=== PATIENT | female | born 1980 | race Caucasian/White ===

== ENCOUNTER 2020-01-13 12:43 | Emergency (ER) | payer SELFPAY ==
--- NOTE | ~2020-01-13 | XR_ITS ---
EXAMINATION: XR ankle LT min 3V EXAM DATE: 01/13/2020 13:13 INDICATION: Old injury. Possible osteomyelitis. TECHNIQUE: Left ankle frontal, lateral and oblique projections obtained and reviewed. Comparison is m kitty to prior examination from 12/24/2018. FINDINGS: There is an old left fibular fracture or osteotomy with nonunion again noted. There is a f ibular plate with bony proliferation surrounding the distal half of it. Again there are screws presen t in the proximal 4 having normal appearance, with a normal appearance to the distal 3 screws. The di stal most screw is fractured. 2 screws bridging the syndesmosis just proximal to this have large amou nt of lucency surrounding them which appears unchanged compared to prior study, and both have demonst rated retraction. Again there is soft tissue swelling. Mild widening of the ankle mortise medially. 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 Evidence of old medial malleolar avulsion injuri es. Accounting for differences in technique, there is no significant interval change. IMPRESSION: Fibular hardware with lucency surrounding the 2 screws bridging distal tibiofibular synd esmosis and some retraction of these. Chronic appearance, more likely loosening than osteomyelitis. M ild mortise widening. Reviewed, dictated and finalized at location A. IMPRESSION: Fibular hardware with lucency surrounding the 2 screws bridging di stal tibiofibular syndesmosis and some retraction of these. Chronic appearance, more likely loosening than osteomyelitis. Mild mortise widening.
[2020-01-13 12:50] VITALS: BP 120/68; PULSE 94; RESP 22; TEMP 37.1; O2SAT 97
--- NOTE | 2020-01-13 13:02 | ED.LOWEXIN ---
HPI - Extremity Injury (Lower) General Chief Complaint: Extremity Injury, Lower Stated Complaint: injured left leg Time Seen by Provider: 01/13/20 13:02 History of Present Illness HPI Narrative: 39-year-old female patient is here with chief complaints of pain in the left ankle for over a week. The patient states that she had broken her left ankle about 6 years ago and has had couple of surgeries with internal fixation. She states that she has some bone deficiency and states that the metal peterson is shifting backwards. The patient's last surgery was about 3 years ago. She denies any recent injury. She has not followed up with Orthopedics at [place] to the because patient states that they will not see her for follow-up. The patient also states that her leg usually remains swollen and about a week ago she was seen at [facility] where she was told that she might have infection off the metal wear in the ankle. She was given an antibiotic in the ER and some pain medication but she states that she was not discharged home with any antibiotics. She has not followed up with any physician either primary care or Orthopedics since then. The patient states that the pain is constant and seems to be more on the medial side. And she also complains of itching in the back of the leg although she is not reporting any rash. The patient states that she has not had any difficulty in ambulation in spite of the fact that she has had a broken ankle in the past and surgical intervention and that the leg remains swollen constantly. Patient denies any pain or injury in any of the joint in the lower extremities either right or left side or any low back pain. Related Data Home Medications Medication Instructions Recorded Confirmed No Home Medications 01/13/20 01/13/20 Allergies Allergy/AdvReac Type Severity Reaction Status Date / Time Penicillins Allergy Itching Verified 01/13/20 13:00 Review of Systems Review of Systems: All systems reviewed & are unremarkable except as noted in HPI and below PMFSH Past Medical History Medical History (Updated 01/13/20 @ 14:17 by Maddie Barnes MD) Aftercare following left ankle joint replacement surgery No pertinent past medical history Exam Narrative: Exam Narrative: Patient is awake and alert and is in no acute distress. She is anxious however and hyperventilating. Her vital signs are stable. Patient has no respiratory distress. Her left lower leg is noted to be is symmetrically swollen. There is no redness deformity or any the rash noted to the ankle area or to the calf. There is some tenderness of the ankle joint diffusely and the ROM is restricted. The distal neurovascular status is intact. Const: General: healthy appearing, no acute distress and alert Other: Eyes: Pupils: Equal, round and reactive pupils present Resp: Effort & Inspection: normal respiratory effort Auscultation: clear to auscultation bilaterally Skin: General skin exam: normal color Rashes: no rashes Neuro: General: patient oriented x3 and CN's II-XI intact bilaterally Speech: normal speech Extrem: Other: left ankle is diffusely swollen and there is a scar noted on the lateral aspect. There is no redness or any open wounds. There is no rash or erythema. The ROM at the left ankle is limited. Patient does have mild tenderness on deep palpation. Neurovascular status is intact. Psych: Mental Status: mental status grossly normal Affect: normal affect Course Course Emergency Course: The patient is aware of her radiology report on the x-ray of the ankle. She is not on any pain medication however she states that she has taken gabapentin in the past. She also states that she was given hydrocodone and tramadol. She is aware that the of she has chronic pain and I have advised her to take Tylenol and ibuprofen. No prescriptions are being given to her at this time from this ER. She will be given follow-up with her pr
[2020-01-13 14:30] VITALS: BP 113/64
== END 2020-01-13 14:30 | disposition home or self-care (01) ==
PROVIDERS: Emergency Provider Emergency Medicine
DX: M25.572 Pain in left ankle and joints of left foot (principal)
CPT/HCPCS: 73610; 99282; 99283

== ENCOUNTER 2020-05-03 19:43 | Emergency (ER) | payer SELFPAY ==
--- NOTE | ~2020-05-03 | XR_ITS ---
EXAMINATION: XR ankle LT min 3V DATE: 05/03/2020 22:02 INDICATION: Left ankle swelling TECHNIQUE: Anteroposterior, oblique, mortise, and lateral views of the left ankle were obtained. COMPARISON: 01/13/2020 and 12/24/2018 FINDINGS: Again seen is a failed internal fixation of a distal left fibular fracture. The chronically nonunited fracture extends transversely across the fibular a possibly 4.7 cm above the level of the tibiotalar joint line. Distalmost screw is fractured. No change in a 1-2 mm thick rim of lucency surrounding th e 2 next most distal screws which span the syndesmosis into the distal medial metaphysis as well as s urrounding the distal aspect of the plate at the distal fragment. The more proximal of the syndesmoti c screws remains partially backed out with an unchanged bulge in the skin contour overlying the head of the screw. There is no lucency surrounding either the fractured fragment in the distal fibula or a long the plate and screws at the fibular diaphysis proximal to the fracture. Both the lack of signifi cant progression of osteolysis and distribution of lucency restricted to locations of expected loosen ing would argue against osteomyelitis. Also argue against osteomyelitis and associated septic arthrit is is a minimal progression of now mild to moderate joint space narrowing at the ankle. Chronic heter otopic ossification between the talus and the tip the medial malleolus along with unchanged mild wide dale of the medial clear space consistent with chronic deltoid ligament tear. No acute fracture. The visualized joint spaces in the left mid and hindfoot remain relatively preserved. Small plantar calca dina spur. Small ankle joint effusion. Soft tissue swelling with subcutaneous edema about the left an kle and visualized lower calf. IMPRESSION: 1. 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 No findings to suggest osteomyelitis or other acute osseous abnormality. 2. 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 Reviewed, dictated and finalized at location H. TECH IMPRESSION: 1. 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 No findings to suggest osteomyeli tis or other acute osseous abnormality. 2. Chronic deltoid ligament tear with unchanged mild widening of the medial mane ar space and slight progression in mild to moderate secondary tibiotalar osteoa rthritis.
--- NOTE | ~2020-05-03 | CT_ITS ---
EXAMINATION: CTA chest PE protocol DATE: 05/03/2020 21:31 INDICATION: Shortness of breath, chest tightness and elevated d-dimer. TECHNIQUE: Computed tomography (CT) pulmonary angiogram of the chest was performed with 100 mL Omnipa que-350 intravenous contrast. Additional 3D reconstructions utilizing coronal maximum intensity proje ction (MIP) were performed. Automated exposure control and iterative reconstruction technique were em ployed. The dose-length product was 794.22 mGy-cm. COMPARISON: None FINDINGS: Good contrast opacification of the pulmonary arteries. There is mild to moderate streak artifact from dense contrast in the superior vena cava and right atrium. Mild scattered respiratory motion artifac t. Overall this mildly decreases sensitivity and specificity for pulmonary embolism. No definitive pu lmonary embolism identified. There is mild mosaic attenuation in the lungs with dependent lower lung predominance consistent with expiratory phase of imaging with scattered mild air trapping related to small airway disease. More prominent air trapping is seen a small subsegmental region of the left low er lobe associated with a large calcified granuloma. No pneumonia, pulmonary edema, pleural effusion or pneumothorax. Heart size is normal. No pericardial effusion. Thoracic aorta is normal caliber with no dissection. Calcified left hilar lymph nodes consistent with old granulomatous disease. No pathol ogically enlarged thoracic lymphadenopathy. Cholecystectomy clips at the gallbladder fossa. Bones are unremarkable. IMPRESSION: 1. No pulmonary embolism. Sensitivity and specificity mildly decreased by combination of some streak artifact and mild respiratory motion. 2. Small region of scattered air trapping consistent with small airway disease. Reviewed, dictated and finalized at [facility]. ER OPERATOR IMPRESSION: 1. No pulmonary embolism. Sensitivity and specificity mildly decreased by combi nation of some streak artifact and mild respiratory motion. 2. Small region of scattered air trapping consistent with small airway disease.
[2020-05-03 19:59] VITALS: BP 140/68; PULSE 98; RESP 22; TEMP 36.9; O2SAT 99
--- NOTE | 2020-05-03 20:14 | ECG_ITS ---
Measurements Intervals [place] Rate: 82 P: 56 CO: 170 QRS: 21 QRSD: 91 T: 48 QT: 370 QTc: 434 Interpretive Statements SINUS RHYTHM WITH SINUS ARRHYTHMIA BASELINE ARTIFACT- II, III, AVR, AVL, AVF NORMAL ECG Electronically Signed On 05-04-2020 9:00:59 NEWS OPERATIONS MANAGER by Samuel Mckinnon D.O.
[2020-05-03] MEDS: KETOROLAC (*BKC) 60 MG/2 ML VIAL IM (20:30)
[2020-05-03] MEDS: BACLOFEN 10 MG TABLET 20 MG PO (20:39)
[2020-05-03 20:40] LABS: Basophils Absolute Auto 0.05 K/mm3 (0.00-0.10); Basophils Percent Auto 0.6 % (0.0-1.0); Eosinophils Absolute Auto 0.11 K/mm3 (0.02-0.50); Eosinophils Percent Auto 1.4 % (1.0-6.0); Hematocrit 38.2 % (35.0-49.0); Hemoglobin 12.2 g/dL (12.0-15.0); Immature Granulocyte Absolute 0.02 K/mm3 (0.00-0.00); Immature Granulocyte Percent A 0.3 % (0.0-0.0); Lymphocytes Absolute Auto 2.67 K/mm3 (1.10-4.50); Lymphocytes Percent Auto 34.4 % (18.0-42.0); Mean Corpuscular HGB Conc 31.9 g/dL (32.0-36.0); Mean Corpuscular Hemoglobin 29.4 pg (27.0-31.0); Mean Platelet Volume 10.3 fl (9.2-11.8); Monocytes Absolute Auto 0.42 K/mm3 (0.10-0.90); Monocytes Percent Auto 5.4 % (2.0-11.0); Neutrophils Absolute Auto 4.5 K/mm3 (1.7-7.2); Neutrophils Percent Auto 57.9 % (50.0-70.0); Platelet Count Result 203 K/mm3 (150-420); Red Blood Count 4.15 M/mm3 (4.20-5.40); Red Cell Distribution Width 14.2 % (11.6-14.4); White Blood Count 7.8 K/mm3 (4.8-10.8)
[2020-05-03 20:55] LABS: BNP 45.3 pg/mL (0-100)
[2020-05-03 20:56] LABS: Alanine Aminotransferase 21 U/L (14-59); Albumin Level 3.4 g/dL (3.4-5.0); Alkaline Phosphatase 78 U/L (46-116); Anion Gap 6 mmol/L (8-16); Aspartate Amino Transferase 13 U/L (15-37); Bilirubin,Total 0.1 mg/dL (0.00-1.00); Blood Urea Nitrogen 12 mg/dL (7-18); Calcium 8.5 mg/dL (8.5-10.1); Carbon Dioxide 29 mmol/L (21-32); Chloride 103 mmol/L (98-108); D Dimer 1.01 mg/L (0.19-0.50); Estimated CRCL calculation 98 ml/min; Estimated Glomerular Filt Rate > 60; Glucose 119 mg/dL (70-99); Osmolality Calculated 286 mOsm/kg (285-295); Potassium 3.3 mmol/L (3.5-5.1); Sodium 138 mmol/L (136-145); Total Protein 6.9 g/dL (6.4-8.2)
[2020-05-03 20:58] LABS: SARS-CoV-2 Ag Negative (Negative)
[2020-05-03 20:59] LABS: Troponin I < 0.02 ng/mL (0.00-0.056)
--- NOTE | 2020-05-03 21:49 | ED.LOWEXIN ---
HPI - Extremity Injury (Lower) General Chief Complaint: Extremity Injury, Lower Stated Complaint: chest and stomach pain, Time Seen by Provider: 05/03/20 20:05 Source: patient Mode of arrival: ambulatory Limitations: other (limitation secondary to anxiety ) History of Present Illness HPI Narrative: Patient comes in anxiety with chest tightness, new of relatively new onset. Also she complains of dull discomfort ongoing, for months, mild to moderately severe in left ankle. Discomfort in ankle has not been relieved by ibuprofen at home. Because of ongoing discomfort she comes in MD complaint: other (no recent injury) Exacerbating factors: weight bearing Related Data Home Medications Medication Instructions Recorded Confirmed No Home Medications 01/13/20 05/03/20 Allergies Allergy/AdvReac Type Severity Reaction Status Date / Time Penicillins Allergy Itching Verified 01/13/20 13:00 Review of Systems Constitutional: Constitutional: Reports no additional constitutional complaints Eyes: Eyes: Reports no additional eye complaints Cardiovascular: Cardiovascular: Reports no additional cardiovascular complaints Respiratory: Respiratory: Reports no additional respiratory complaints Gastrointestinal: Gastrointestinal: Reports no additional gastrointestinal complaints Genitourinary: Genitourinary: Reports no additional female genitourinary complaints Musculoskeletal: Musculoskeletal: Reports no additional musculoskeletal complaints Comments: Pain in Integumentary/Breasts: Skin/Breast: Reports system reviewed and no additional complaints, except as docu Neurologic: Reports system reviewed and no additional complaints, except as documented Psychiatric: Psychiatric: Reports no additional psychiatric complaints Endocrine: Endocrine: Reports no additional endocrine complaints Hematologic/Lymphatic: Hematologic/Lymphatic: Reports no additional hematologic/lymphatic complaints Allergic/Immunologic: Allergic/Immunologic: Reports no additional allergic/immunologic complaints [facility] Past Medical History Medical History Aftercare following left ankle joint replacement surgery Anxiety disorder No pertinent past medical history Surgical History Surgical History Status post ORIF of fracture of ankle Social History Social History Smoking packs per day: 1 Smoking cigarettes per day: 20.0 Smoking status: Current every day smoker Exam Narrative: Exam Narrative: Patient appears acutely anxious, and complaining of pain in left ankle. Anxiety appears to be the main issue here. Const: Orientation/consciousness: patient oriented x3 Other: acute anxiety HENMT: Head: normal to inspection Ears: TM's normal bilaterally and TM abnormal General nose exam: Normal external nose present and Normal nares present Face and sinus: normal facial exam Throat: posterior oropharynx normal and uvula midline Eyes: General: appearance normal, both eyes and all related structures Conjunctivae: conjunctivae normal Pupils: Equal, round and reactive pupils present Neck: Neck: normal visual inspection and no lymphadenopathy Chest: Chest palpation & inspection: normal inspection of the chest Resp: Effort & Inspection: normal respiratory effort Auscultation: clear to auscultation bilaterally Cardio: Rate: regular rate Rhythm: regular rhythm GI: GI Palp: Yes Soft to palpation Other: nontender : General: Yes no CVA tenderness Skin: General skin exam: normal color Rashes: no rashes Neuro: General: patient oriented x3 and moves all extremities Other: Speech reveals acute anxitey Extrem: General: normal to inspection Psych: Appearance: grossly normal Mental Status: mental status grossly normal Thought content: Yes Normal thought content present Course Course Sondra
[2020-05-03 23:36] VITALS: BP 119/76; PULSE 90; RESP 20; TEMP 37.1; O2SAT 98
== END 2020-05-03 23:36 | disposition home or self-care (01) ==
PROVIDERS: Emergency Provider Emergency Medicine
DX: M25.572 Pain in left ankle and joints of left foot (principal)
CPT/HCPCS: 36415; 71275; 73610; 80053; 83880; 84484; 85025; 85380; 87426; 93005; 96372; 99283; 99284; A9270; J1885; Q9965

== ENCOUNTER 2020-12-10 18:55 | Emergency (ER) | payer SELFPAY ==
--- NOTE | ~2020-12-10 | XR_ITS ---
EXAMINATION: XR forearm RT 2V DATE: 12/10/2020 19:56 INDICATION: Right forearm injury. TECHNIQUE: 2 views of right forearm were obtained. COMPARISON: None. FINDINGS: Bone alignment is normal. No fracture. Joint spaces are well maintained. There is no elbow joint effusion. IMPRESSION: 1. Normal right forearm. Reviewed, dictated and finalized at location A. IMPRESSION: 1. Normal right forearm.
--- NOTE | ~2020-12-10 | XR_ITS ---
EXAMINATION: XR elbow RT min 3V DATE: 12/10/2020 19:56 INDICATION: Right elbow injury. TECHNIQUE: 4 views of right elbow were obtained. COMPARISON: None. FINDINGS: Bone alignment is normal. No fracture. Incidental note is made of a supracondylar process. Joint spaces are well maintained. There is no elbow joint effusion. IMPRESSION: 1. Normal right elbow. Reviewed, dictated and finalized at location A. IMPRESSION: 1. Normal right elbow.
--- NOTE | ~2020-12-10 | CT_ITS ---
EXAMINATION: CT brain wo con DATE: 12/10/2020 19:56 INDICATION: Head injury. TECHNIQUE: Computed tomography (CT) of the head was performed without intravenous contrast. The mA wa s adjusted according to patient size. Iterative reconstruction technique was employed. The dose-lengt h product was 605.33 mGy-cm. COMPARISON: None FINDINGS: There is no intracranial hemorrhage, acute infarction, or abnormal intracranial mass lesion . The ventricles are normal in size. The paranasal sinuses are clear. The mastoid air cells are olu l. The orbits are normal. IMPRESSION: 1. Normal brain. Reviewed, dictated and finalized at location A. IMPRESSION: 1. Normal brain.
[2020-12-10 19:05] VITALS: BP 130/98; PULSE 88; RESP 20; TEMP 36.8; O2SAT 99
--- NOTE | 2020-12-10 19:09 | ED.LOWEXIN ---
HPI - Extremity Injury (Lower) General Chief Complaint: Fall Stated Complaint: fell multiple times Time Seen by Provider: 12/10/20 19:15 Source: patient Mode of arrival: ambulatory Limitations: no limitations History of Present Illness HPI Narrative: Patient comes in after falls and complaints of headache and mental status change. Falls happened yesterday and last am. Headache has been mild but associated with presyncope. Right elbow pain has been moderately severe, ongoing, with greatly increased pain with pronation and supination of the elbow. Pain has been ongoing since last 1:30am today, made worse with movement. Pain lessened with ice and rest. Onset (ago): hour(s) Type of Injury: blunt Place: home Severity: moderate Relieving factors: rest Exacerbating factors: movement Context: direct blow Associated symptoms: swelling Treatments prior to arrival: cold therapy and NSAIDS Related Data Allergies Allergy/AdvReac Type Severity Reaction Status Date / Time Penicillins Allergy Itching Verified 01/13/20 13:00 Review of Systems Constitutional: Constitutional: Reports no additional constitutional complaints Eyes: Eyes: Reports no additional eye complaints ENT: Reports system reviewed and no additional complaints, except as documented Cardiovascular: Cardiovascular: Reports no additional cardiovascular complaints Respiratory: Respiratory: Reports no additional respiratory complaints Gastrointestinal: Gastrointestinal: Reports no additional gastrointestinal complaints Genitourinary: Genitourinary: Reports no additional female genitourinary complaints Musculoskeletal: Musculoskeletal: Reports no additional musculoskeletal complaints Integumentary/Breasts: Skin/Breast: Reports system reviewed and no additional complaints, except as docu Neurologic: Reports system reviewed and no additional complaints, except as documented Psychiatric: Psychiatric: Reports no additional psychiatric complaints Endocrine: Endocrine: Reports no additional endocrine complaints Hematologic/Lymphatic: Hematologic/Lymphatic: Reports no additional hematologic/lymphatic complaints Allergic/Immunologic: Allergic/Immunologic: Reports no additional allergic/immunologic complaints [facility] Past Medical History Medical History Aftercare following left ankle joint replacement surgery Anxiety disorder No pertinent past medical history Surgical History Surgical History Status post ORIF of fracture of ankle Family History Family History (Updated 12/10/20 @ 20:17 by Derek Perez MD) Mother Lung cancer Thyroid cancer Social History Social History Smoking packs per day: 1 Smoking cigarettes per day: 20.0 Smoking status: Current every day smoker Exam Const: General: no acute distress and alert Orientation/consciousness: patient oriented x3 HENMT: Head: normal to inspection Ears: external ears normal and TM's normal bilaterally General nose exam: Normal external nose present Face and sinus: normal facial exam Mouth: Yes Normal oral and palatal mucosa present Throat: posterior oropharynx normal Eyes: Conjunctivae: conjunctivae normal Neck: Neck: normal visual inspection and no lymphadenopathy Chest: Chest palpation & inspection: normal inspection of the chest Resp: Effort & Inspection: normal respiratory effort Auscultation: clear to auscultation bilaterally Cardio: Rate: regular rate Rhythm: regular rhythm GI: GI Palp: Yes Soft to palpation (nontender) Back/Spine/Pelvis: Back: no CVA tenderness Skin: General skin exam: normal color Neuro: General: patient oriented x3 and moves all extremities Extrem: General: normal to inspection Psych: Appearance: grossly normal Mental Status: mental status grossly normal Thought content: Yes Normal thought content p
[2020-12-10] MEDS: KETOROLAC (*BKC) 60 MG/2 ML VIAL IM (19:55)
[2020-12-10 20:14] VITALS: BP 146/97; PULSE 84; RESP 20; TEMP 36.8; O2SAT 97
--- NOTE | 2020-12-10 20:25 | PC.NURSE ---
patient assisted to personal vehicle per this RN per wheelchair.
== END 2020-12-10 20:26 | disposition home or self-care (01) ==
PROVIDERS: Emergency Provider Emergency Medicine
DX: S50.01XA Contusion of right elbow, initial encounter (principal); W19.XXXA Unspecified fall, initial encounter
CPT/HCPCS: 70450; 73080; 73090; 96372; 99283; 99284; A4565; J1885

== ENCOUNTER 2021-11-23 19:59 | Emergency (ER) | payer OTHER, SELFPAY ==
--- NOTE | ~2021-11-23 | XR_ITS ---
XR chest 1V portable DATE: 11/23/2021 20:58 INDICATION: Shortness of breath, central chest tightness TECHNIQUE: Portable upright AP chest on 12/03/2021 at 2100 hours COMPARISON: 05/03/2020 CT pulmonary scan FINDINGS: Normal heart size. No hilar or mediastinal enlargement. No pulmonary infiltrate or consolid ation, pleural effusion or pulmonary vascular congestion or pneumothorax. There is minimal levoscoliosis of the thoracic spine. IMPRESSION: No active cardiopulmonary disease Reviewed, dictated and finalized at location A.
[2021-11-23 20:00] VITALS: BP 138/77; PULSE 96; RESP 20; TEMP 37.2; O2SAT 96
--- NOTE | 2021-11-23 20:06 | ED.URI ---
HPI - URI/Sore Throat General Chief Complaint: Shortness of Breath/Dyspnea Stated Complaint: possible bronchitis Time Seen by Provider: 11/23/21 20:06 Source: patient Mode of arrival: ambulatory History of Present Illness HPI Narrative: 41-year-old female, smoker with obesity presents to the ER 2 day history of -- cough with mucoid sputum -- worsening shortness of breath no fever or chest pain has nausea without any vomiting or diarrhea MD elicited complaint: cough Onset (ago): day(s) ( started 2 days ago) Severity: moderate Description of mucous: clear Able to tolerate fluids by mouth: Yes Exacerbating factors: nothing Relieving factors: nothing Context: sick contacts ( her granddaughter tested positive for COVID 5 days ago) Associated symptoms: denies other symptoms, cough, shortness of breath and nausea Treatments prior to arrival: none Related Data Home Medications Medication Instructions Recorded Confirmed gabapentin 100 mg capsule 1 cap PO TID 11/23/21 11/23/21 Allergies Allergy/AdvReac Type Severity Reaction Status Date / Time Penicillins Allergy Itching Verified 01/13/20 13:00 Review of Systems Review of Systems: All systems reviewed & are unremarkable except as noted in HPI and below Constitutional: Constitutional: Reports as per HPI and Reports no additional constitutional complaints Eyes: Eyes: Reports as per HPI and Reports no additional eye complaints ENT: Reports system reviewed and no additional complaints, except as documented and Reports as per HPI Cardiovascular: Cardiovascular: Reports as per HPI and Reports no additional cardiovascular complaints Respiratory: Respiratory: Reports as per HPI, Reports no additional respiratory complaints, Reports chest congestion, Reports cough, Reports excessive phlegm production and Reports dyspnea Gastrointestinal: Gastrointestinal: Reports as per HPI and Reports no additional gastrointestinal complaints Genitourinary: Genitourinary: Reports no additional female genitourinary complaints and Reports as per HPI Musculoskeletal: Musculoskeletal: Reports no additional musculoskeletal complaints and Reports as per HPI Integumentary/Breasts: Skin/Breast: Reports system reviewed and no additional complaints, except as docu and Reports as per HPI Neurologic: Reports system reviewed and no additional complaints, except as documented and Reports as per HPI Psychiatric: Psychiatric: Reports no additional psychiatric complaints and Reports as per HPI Endocrine: Endocrine: Reports no additional endocrine complaints and Reports as per HPI Hematologic/Lymphatic: Hematologic/Lymphatic: Reports no additional hematologic/lymphatic complaints and Reports as per HPI Allergic/Immunologic: Allergic/Immunologic: Reports no additional allergic/immunologic complaints and Reports as per HPI [facility] Past Medical History Medical History Aftercare following left ankle joint replacement surgery Anxiety disorder No pertinent past medical history Surgical History Surgical History Status post ORIF of fracture of ankle Family History Family History Mother Lung cancer Thyroid cancer Social History Social History Smoking packs per day: 1 Smoking cigarettes per day: 20.0 Smoking status: Current every day smoker Exam Const: General: well developed and anxious Nutritional Appearance: obese Orientation/consciousness: oriented to person, oriented to place and oriented to time Limitations: no limitations HENMT: Head: normal to inspection Ears: hearing grossly normal bilaterally General nose exam: Normal external nose present Face and sinus: normal facial exam Mouth: Yes Normal oral and palatal mucosa present Throat: posterior oropharynx normal
--- NOTE | 2021-11-23 20:17 | ECG_ITS ---
Measurements Intervals [place] Rate: 92 P: 54 NH: 172 QRS: -3 QRSD: 89 T: 63 QT: 364 QTc: 452 Interpretive Statements SINUS RHYTHM POSSIBLE LEFT ATRIAL ENLARGEMENT [-0.1mV P-WAVE IN V1/V2] LOW QRS VOLTAGE IN PRECORDIAL LEADS [QRS DEFLECTION < 1.0 mV IN CHEST LEADS] COMPARED TO ECG 05/03/2020 20:25:04 NO SIGNIFICANT CHANGE Electronically Signed On 11-24-2021 14:22:15 CDT by Sylvain Quiroz M.D.
[2021-11-23 20:23] VITALS: O2SAT 96
[2021-11-23 20:30] VITALS: PULSE 95; RESP 18; O2SAT 96
[2021-11-23] MEDS: IPRATROPIUM 0.5 MG/ALBUTEROL SULFATE 2.5 MG AMPUL.NEB 3 ML INHALATION (20:30)
[2021-11-23 20:31] LABS: Basophils Absolute Auto 0.05 K/mm3 (0.00-0.10); Basophils Percent Auto 1.1 % (0.0-1.0); Eosinophils Absolute Auto 0.18 K/mm3 (0.02-0.50); Eosinophils Percent Auto 3.9 % (1.0-6.0); Hemoglobin 12.4 g/dL (12.0-15.0); Immature Granulocyte Absolute 0.01 K/mm3 (0.00-0.00); Immature Granulocyte Percent A 0.2 % (0.0-0.0); Lymphocytes Absolute Auto 1.66 K/mm3 (1.10-4.50); Lymphocytes Percent Auto 36.2 % (18.0-42.0); Mean Corpuscular HGB Conc 31.8 g/dL (32.0-36.0); Mean Corpuscular Hemoglobin 28.4 pg (27.0-31.0); Mean Corpuscular Volume 89.4 fL (78.0-102.0); Mean Platelet Volume 10.2 fl (9.2-11.8); Monocytes Absolute Auto 0.37 K/mm3 (0.10-0.90); Monocytes Percent Auto 8.1 % (2.0-11.0); Neutrophils Absolute Auto 2.3 K/mm3 (1.7-7.2); Neutrophils Percent Auto 50.5 % (50.0-70.0); Platelet Count Result 199 K/mm3 (150-420); Red Blood Count 4.36 M/mm3 (4.20-5.40); Red Cell Distribution Width 15.2 % (11.6-14.4); White Blood Count 4.6 K/mm3 (4.8-10.8)
[2021-11-23 20:44] VITALS: PULSE 95; RESP 18; O2SAT 97
[2021-11-23 20:54] LABS: Alanine Aminotransferase 17 U/L (14-59); Albumin Level 3.2 g/dL (3.4-5.0); Alkaline Phosphatase 87 U/L (46-116); Anion Gap 8 mmol/L (8-16); Aspartate Amino Transferase 17 U/L (15-37); Bilirubin,Total 0.2 mg/dL (0.00-1.00); Blood Urea Nitrogen 6 mg/dL (7-18); Calcium 8.4 mg/dL (8.5-10.1); Carbon Dioxide 31 mmol/L (21-32); Chloride 102 mmol/L (98-108); Estimated CRCL calculation 105 ml/min; Estimated Glomerular Filt Rate > 60; Glucose 206 mg/dL (70-99); NT Pro B Type Natriuretic Pept 39 pg/mL (0-125); Osmolality Calculated 295 mOsm/kg (285-295); Potassium 3.6 mmol/L (3.5-5.1); Sodium 141 mmol/L (136-145); Total Protein 6.8 g/dL (6.4-8.2); Troponin I 7.9 ng/L (0.00-60.4)
[2021-11-23 21:08] LABS: Influenza A QL RT-PCR Negative (Negative); Influenza B QL RT-PCR Negative (Negative); SARS-CoV-2 RNA PCR Negative (Negative)
[2021-11-23] MEDS: AZITHROMYCIN 250 MG TABLET 500 MG PO (21:20)
[2021-11-23] MEDS: methylPREDNISolone SOD SUCC 125 MG VIAL 40 MG IM (21:21)
[2021-11-23] MEDS: ALBUTEROL SULFATE (*SP) INHALER 2 PUFF INHALATION (21:27)
[2021-11-23 21:28] VITALS: BP 128/79; PULSE 87; RESP 20; TEMP 37.2; O2SAT 99
== END 2021-11-23 21:36 | disposition home or self-care (01) ==
PROVIDERS: Emergency Provider Internal Medicine Critical Care Medicine
DX: J20.9 Acute bronchitis, unspecified (principal); R73.9 Hyperglycemia, unspecified; Z20.822 Contact with and (suspected) exposure to COVID-19
CPT/HCPCS: 36415; 71045; 80053; 83605; 83880; 84484; 85025; 87502; 93005; 94640; 96372; 99284; A9270; C9803; J2930; U0003; U0005

== ENCOUNTER 2022-07-18 18:20 | Emergency (ER) | payer OTHER, SELFPAY ==
[2022-07-18 18:20] VITALS: BP 110/67; PULSE 96; RESP 20; TEMP 36.2; O2SAT 100
--- NOTE | 2022-07-18 18:35 | ED.GENADULT ---
HPI - General Adult General Chief complaint: Skin/Abscess/Foreign Body Stated complaint: boils on both sides and right leg infected Time Seen by Provider: 07/18/22 18:35 Source: patient Mode of arrival: ambulatory Limitations: no limitations History of Present Illness HPI narrative: Patient complains of a boil right side of her chest. It has been draining she pushed on it been there for couple weeks. She also complains of small in her left axilla. And she complains of scab on her right thigh. Denies any fever cough runny nose sore throat nausea vomiting diarrhea constipation, problems walking talking seeing or hearing. She has had these boils before back in April. Related Data Allergies Allergy/AdvReac Type Severity Reaction Status Date / Time codeine Allergy Rash Verified 07/18/22 18:33 Penicillins Allergy Itching Verified 07/18/22 18:33 Review of Systems Constitutional: Constitutional: Reports as per HPI and Reports no additional constitutional complaints Eyes: Eyes: Reports no additional eye complaints ENT: Reports system reviewed and no additional complaints, except as documented, Denies dizziness and Denies sore throat Cardiovascular: Cardiovascular: Reports no additional cardiovascular complaints and Denies chest pain Respiratory: Respiratory: Reports as per HPI and Reports no additional respiratory complaints Gastrointestinal: Gastrointestinal: Reports no additional gastrointestinal complaints Genitourinary: Genitourinary: Reports no additional female genitourinary complaints Musculoskeletal: Musculoskeletal: Reports no additional musculoskeletal complaints, Denies back pain, Denies myalgias, Denies arthralgias and Denies joint swelling Integumentary/Breasts: Skin/Breast: Reports system reviewed and no additional complaints, except as docu, Reports as per HPI and Reports rash Neurologic: Reports system reviewed and no additional complaints, except as documented, Denies numbness and Denies weakness PMFSH Past Medical History Medical History Aftercare following left ankle joint replacement surgery Anxiety disorder No pertinent past medical history Surgical History Surgical History Status post ORIF of fracture of ankle Family History Family History Mother Lung cancer Thyroid cancer Social History Social History Smoking packs per day: 1 Smoking cigarettes per day: 20.0 Smoking status: Current every day smoker Exam Narrative: Obese white female she appears in no apparent distress skin right chest wall with the indurated erythematous area with the draining draining sero pustular fluid centrally without fluctuation. Minimal tenderness. Left axilla has a small 0.5 cm nodule it is red slightly tender. Cry right lateral thigh has a scab the size of a dime healed over without surrounding erythema or tenderness. Const: General: healthy appearing Nutritional Appearance: well nourished Orientation/consciousness: patient oriented x3 Limitations: no limitations Medical Decision Making MDM Narrative Medical decision making narrative: Patient most likely have a MRSA infections the right chest wall cellulitis probably was an abscess which she drained on her own. And is still draining a little bit. I do not think it needs to be incised and drained. If no fluctuation. She has a total of 3 see skin lesions. Differential Diagnosis Differential Diagnosis: Cellulitis versus abscess, Discharge Plan Discharge Clinical Impression: Cellulitis Patient Disposition: Home, Self-Care Condition: Stable Instructions: Antibiotic Form, Cellulitis (ED) Additional Instructions: use warm compresses as discussed 3 or 4 times a day for 20 minutes. Take Tylenol and/or
[2022-07-18] MEDS: SULFAMETHOXAZOLE/TRIMETHOPRIM 800/160 MG DS TABLET 1 TAB PO (18:51)
[2022-07-18 19:06] VITALS: BP 130/89; PULSE 90; RESP 20; TEMP 36.6; O2SAT 95
== END 2022-07-18 19:11 | disposition home or self-care (01) ==
PROVIDERS: Emergency Provider Emergency Medicine
DX: L03.313 Cellulitis of chest wall (principal); F17.210 Nicotine dependence, cigarettes, uncomplicated
CPT/HCPCS: 99283; A9270

== ENCOUNTER 2024-02-16 16:33 | Emergency (ER) | payer OTHER, SELFPAY ==
[2024-02-16 16:34] VITALS: BP 152/100; PULSE 110; RESP 24; TEMP 36.6; O2SAT 97
--- NOTE | 2024-02-16 16:34 | ED.LOWEXIN ---
HPI - Extremity Injury (Lower) General Chief Complaint: Extremity Injury, Lower Stated Complaint: left toe pain Time Seen by Provider: 02/16/24 16:34 Source: patient Mode of arrival: ambulatory Limitations: no limitations History of Present Illness HPI Narrative: Patient is a 43-year-old female with a left great toe and 2nd toe redness and inflammation and pain. complaint: other ( Left great toe pain) Onset (ago): week(s) (1) Injury: Left: toes ( great toe and 2nd toe) Type of Injury: other ( no injury per se; pus drainage from the toenail on the great toe at times) Place: home Severity: moderate Severity scale (1-10): 6 Relieving factors: immobilization Exacerbating factors: movement and palpation Context: other ( no definite injury) Associated symptoms: able to partially bear weight Other symptoms: none Treatments prior to arrival: other ( heat) Related Data Home Medications Medication Instructions Recorded Confirmed apixaban 5 mg tablet (Eliquis) 5 mg PO BID 02/16/24 02/16/24 Allergies Allergy/AdvReac Type Severity Reaction Status Date / Time amoxicillin Allergy Rash Verified 02/16/24 16:53 codeine Allergy Rash Verified 02/16/24 16:53 Penicillins Allergy Itching Verified 02/16/24 16:53 Review of Systems Review of Systems: All systems reviewed & are unremarkable except as noted in HPI and below Constitutional: Constitutional: Reports no additional constitutional complaints Eyes: Eyes: Reports no additional eye complaints ENT: Reports system reviewed and no additional complaints, except as documented Cardiovascular: Cardiovascular: Reports no additional cardiovascular complaints Respiratory: Respiratory: Reports no additional respiratory complaints Gastrointestinal: Gastrointestinal: Reports no additional gastrointestinal complaints Genitourinary: Genitourinary: Reports no additional female genitourinary complaints Musculoskeletal: Musculoskeletal: Reports no additional musculoskeletal complaints Integumentary/Breasts: Skin/Breast: Reports system reviewed and no additional complaints, except as docu Neurologic: Reports system reviewed and no additional complaints, except as documented Psychiatric: Psychiatric: Reports no additional psychiatric complaints Endocrine: Endocrine: Reports no additional endocrine complaints Hematologic/Lymphatic: Hematologic/Lymphatic: Reports no additional hematologic/lymphatic complaints Allergic/Immunologic: Allergic/Immunologic: Reports no additional allergic/immunologic complaints PMFSH Past Medical History Medical History Aftercare following left ankle joint replacement surgery Anxiety disorder No pertinent past medical history Surgical History Surgical History Status post ORIF of fracture of ankle Family History Family History Mother Lung cancer Thyroid cancer Social History Social History Smoking packs per day: 1 Smoking cigarettes per day: 20.0 Smoking status: Current every day smoker Exam Const: General: healthy appearing Nutritional Appearance: well nourished Orientation/consciousness: patient oriented x3 HENMT: Head: normal to inspection Ears: external ears normal Face/Nose/Sinus: Normal external nose present Eyes: Conjunctivae: conjunctivae normal Pupils: Equal, round and reactive pupils present EOM: EOMs intact bilaterally Neck: Neck: normal visual inspection Chest: Chest palpation & inspection: normal inspection of the chest Resp: Effort & Inspection: normal respiratory effort and not labored Auscultation: clear to auscultation bilaterally and no crackles Cardio: Rate: regular rate Rhythm: regular rhythm Heart sounds: no murmurs GI: Inspection: non-distended GI Palp: Yes Soft to palpation a
== END 2024-02-16 17:09 | disposition home or self-care (01) ==
LOC: CHSED 17:01
PROVIDERS: Emergency Provider Emergency Medicine
DX: L03.032 Cellulitis of left toe (principal); F17.210 Nicotine dependence, cigarettes, uncomplicated; Z79.01 Long term (current) use of anticoagulants
CPT/HCPCS: 99283

== ENCOUNTER 2024-04-20 08:41 | Emergency (ER) | payer OTHER, SELFPAY ==
[2024-04-20] VITALS (18 sets, daily range): BP systolic 102–138; BP diastolic 70–111; PULSE 92–117; RESP 20; TEMP 36.7; O2SAT 96–100
--- NOTE | ~2024-04-20 | XR_ITS ---
XR foot RT min 3V Ordering provider: Jacques Gutierrez MD History: . plantar sensitive, foot is cold, dorsum pain X 3 days . Comparison: None. FINDINGS: BONES: No acute fracture or dislocation. Calcaneal spur. JOINT SPACES: Normal. No tarsal coalition. SOFT TISSUES: Soft tissue swelling seen in the plantar aspect anteriorly most likely due to celluliti s. Clinical correlation and follow-up advised. IMPRESSION: No acute osseous abnormality of the right foot. Highly suggestive cellulitis involving the plantar aspect anteriorly. Reviewed, dictated and finalized at location A. [facility]
--- NOTE | 2024-04-20 09:32 | PC.NURSE ---
dopper to left foot noted right foot absent
[2024-04-20 09:49] LABS: Basophils Absolute Auto 0.05 K/mm3 (0.00-0.10); Basophils Percent Auto 0.5 % (0.0-1.0); Eosinophils Absolute Auto 0.14 K/mm3 (0.02-0.50); Eosinophils Percent Auto 1.3 % (1.0-6.0); Hematocrit 42.6 % (35.0-49.0); Hemoglobin 14.2 g/dL (12.0-15.0); Immature Granulocyte Absolute 0.04 K/mm3 (0.00-0.00); Immature Granulocyte Percent A 0.4 % (0.0-0.0); Lymphocytes Absolute Auto 2.49 K/mm3 (1.10-4.50); Lymphocytes Percent Auto 23.1 % (18.0-42.0); Mean Corpuscular HGB Conc 33.3 g/dL (32-36); Mean Corpuscular Volume 83.9 fL (78.0-102.0); Mean Platelet Volume 9.7 fl (9.2-11.8); Monocytes Absolute Auto 0.67 K/mm3 (0.10-0.90); Monocytes Percent Auto 6.2 % (2.0-11.0); Neutrophils Absolute Auto 7.37 K/mm3 (1.70-7.20); Neutrophils Percent Auto 68.5 % (50.0-70.0); Platelet Count Result 282 K/mm3 (150-420); Red Blood Count 5.08 M/mm3 (4.20-5.40); Red Cell Distribution Width 16.1 % (11.6-14.4); White Blood Count 10.8 K/mm3 (4.8-10.8)
[2024-04-20 10:03] LABS: Partial Thromboplastin Time 27.5 Sec (23.9-30.70); Prothrombin Time 10.9 Seconds (9.50-12.1)
[2024-04-20 10:04] LABS: Alanine Aminotransferase 20 U/L (14-59); Albumin Level 3.2 g/dL (3.4-5.0); Alkaline Phosphatase 132 U/L (46-116); Anion Gap 10 mmol/L (4-12); Aspartate Amino Transferase 20 U/L (15-37); Bilirubin,Total 0.4 mg/dL (0.00-1.00); Blood Urea Nitrogen 6 mg/dL (7-18); Calcium 9.3 mg/dL (8.5-10.1); Carbon Dioxide 29 mmol/L (21-32); Chloride 97 mmol/L (98-108); Estimated CRCL calculation 132 ml/min; Estimated Glomerular Filt Rate > 60; Glucose 153 mg/dL (70-99); Osmolality Calculated 282 mOsm/kg (285-295); Potassium 3.9 mmol/L (3.5-5.1); Sodium 136 mmol/L (136-145)
[2024-04-20] MEDS: HEPARIN SODIUM 5,000 UNITS/ML VIAL 7000 UNITS IV PUSH (10:12)
[2024-04-20] MEDS: HEPARIN SOD/D5W 100 UNITS/ML 25,000 UNITS/250 ML BAG 15 UNITS IV CONT (10:13)
--- NOTE | 2024-04-20 11:06 | ED.LOWEXIN ---
HPI - Extremity Injury (Lower) General Chief Complaint: Extremity Injury, Lower Stated Complaint: foot pain Source: patient Mode of arrival: ambulatory Limitations: no limitations History of Present Illness HPI Narrative: 44 years old white female came to the ED by ambulance complaining of numbness, pain, discolored right foot in the last few days worse over the last 2 days. Patient feels that her right is bruises and numb. She denies any injury. Patient has been somewhat itchy for the last 7 days because of inability to put weight on the right foot. History of diabetes, hypertension, hyperlipidemia, hypothyroidism, asthma. History of blood clot in this plane used to be on Eliquis which stopped 2 months ago. Related Data Home Medications Medication Instructions Recorded Confirmed atorvastatin 20 mg tablet 20 mg PO HS 04/20/24 04/20/24 cyclobenzaprine 10 mg tablet 10 mg PO BID 04/20/24 04/20/24 glipizide 10 mg tablet, extended 10 mg PO DAILY 04/20/24 04/20/24 release 24 hr levothyroxine 50 mcg tablet 50 mcg PO DAILY 04/20/24 04/20/24 metformin 1,000 mg tablet 1,000 mg PO BID 04/20/24 04/20/24 Allergies Allergy/AdvReac Type Severity Reaction Status Date / Time amoxicillin Allergy Rash Verified 04/20/24 09:47 codeine Allergy Rash Verified 04/20/24 09:47 Penicillins Allergy Itching Verified 04/20/24 09:47 Review of Systems Review of Systems: All systems reviewed & are unremarkable except as noted in HPI and below PMFSH Past Medical History Medical History Aftercare following left ankle joint replacement surgery Anxiety disorder No pertinent past medical history Surgical History Surgical History Status post ORIF of fracture of ankle Family History Family History Mother Lung cancer Thyroid cancer Social History Social History Smoking packs per day: 1 Smoking cigarettes per day: 20.0 Smoking status: Current every day smoker Exam Narrative: General appearance: Well-developed, well-nourished Skin: Normal color Head: Normocephalic, nontraumatic Eyes: Clear conjunctiva ENT: Oropharynx normal, ears normal, nose normal Neck: Supple, nontender Chest and respiratory: Airway patent, no respiratory distress, no accessory muscle use Heart: Regular rate/rhythm Abdomen: Soft, nontender, no organomegaly, quiet bowel sounds Vascular: Pedal pulse and posterior tibialis nondetectable and the right foot. Poor sensation, motor 3/5 at the right ankle, bluish discoloration of the toes mainly the big toe, cold Musculoskeletal: Normal range of motion, nontender back Neurologic: Alert and oriented ?3, [employer] is normal as tested, no gross motor deficit Course Course Emergency Course: Dr. Aleman Consultations Consultation #1: Dr. Chávez Vascular surgeon at [facility] who accepted patient transfer Date: 04/20/24 Consultation #2: , hospitalist at [facility] who accepted patient transfer Date: 04/20/24 Time: 11:09 Vital Signs Vital signs: Vital Signs Temperature 36.7 C 04/20/24 09:18 Pulse Rate 117 H 04/20/24 09:18 Respiratory Rate 20 04/20/24 09:18 Blood Pressure 129/86 04/20/24 09:18 Pulse Oximetry 98 04/20/24 09:18 Oxygen Delivery Room Air 04/20/24 09:18 Temperature 36.7 C 04/20/24 09:18 Pulse Rate 117 H 04/20/24 09:18 Respiratory Rate 20 04/20/24 09:18 Blood Pressure 129/86 04/20/24 09:18 Pulse Oximetry 98 04/20/24 09:18 Oxygen Delivery Room Air 04/20/24 09:18 MDM - Extremity Injury (Lower) MDM Narrative Medical decision making narrative: patient presents with numbness and pain of the right foot for the last few days Vital signs showing heart rate of 117 Physical examination showing finding of the right foot consistent with blue toes syndrome. Heparin bolus and drip started, Blood workup today showed normal WBC, blood glucose of 153, otherwise insignificant abnormalities X-ray of the right foot showed no acute osseous abnormality EKG showed normal sinus rhythm at 92 beats per minute, left atrial enlargement, low voltage in precordial leads, compared to EKG on May 03, 2020 no significant changes Patient got accepted for transferred to [facility] discussed with vascular surgeon and hospitalist. Differential Diagnosis Differential diagnosis: Likely other ( Blue to use syndrome, acute arterial insufficiency) Medical Records Attestation: I reviewed the patient's medical records. Lab Data Attestation: I reviewed the patient's lab results. 04/20/24 09:42 04/20/24 09:42 Labs: Lab Results 04/20/24 Range/Units 09:42 WBC 10.8 (4.8-10.8) K/mm3 RBC 5.08 (4.20-5.40) M/mm3 Hgb 14.2 (12.0-15.0) g/dL Hct 42.6 (35.0-49.0) % MCV 83.9 (78.0-102.0) fL MCH 28.0 (27.0-31.0) pg MCHC 33.3 (32-36) g/dL RDW 16.1 H (11.6-14.4) % Plt Count 282 (150-420) K/mm3 MPV 9.7 (9.2-11.8) fl Immature Gran % (Auto) 0.4 H (0.0-0.0) % Neut % (Auto) 68.5 (50.0-70.0) % Lymph % (Auto) 23.1 (18.0-42.0) % [place] % (Auto) 6.2 (2.0-11.0) % Eos % (Auto) 1.3 (1.0-6.0) % Baso % (Auto) 0.5 (0.0-1.0) % Lymph # (Auto) 2.49 (1.10-4.50) K/mm3 [place] # (Auto) 0.67 (0.10-0.90) K/mm3 Eos # (Auto) 0.14 (0.02-0.50) K/mm3 Baso # (Auto) 0.05 (0.00-0.10) K/mm3 Abs Immat Gran (auto) 0.04 H (0.00-0.00) K/mm3 Absolute Neuts (auto) 7.37 H (1.70-7.20) K/mm3 Absolute Nucleated RBC 0.00 (0.00-0.00) K/mm3 Nucleated RBC % 0.0 (0-0.0) % PT 10.9 (9.50-12.1) Seconds INR 1.0 APTT 27.5 (23.9-30.70) Sec Sodium 136 (136-145) mmol/L Potassium 3.9 (3.5-5.1) mmol/L Chloride 97 L (98-108) mmol/L Carbon Dioxide 29 (21-32) mmol/L Anion Gap 10 (4-12) mmol/L BUN 6 L (7-18) mg/dL Creatinine 0.65 (0.55-1.02) mg/dL Estim Creat Clear Calc 132 ml/min Estimated GFR > 60 (59 - ) Glucose 153 H (70-99) mg/dL Calculated Osmolality 282 L (285-295) mOsm/kg Calcium 9.3 (8.5-10.1) mg/dL Total Bilirubin 0.4 (0.00-1.00) mg/dL AST 20 (15-37) U/L ALT 20 (14-59) U/L Alkaline Phosphatase 132 H (46-116) U/L Total Protein 8.0 (6.4-8.2) g/dL Albumin 3.2 L (3.4-5.0) g/dL Imaging Data Radiologist's impression: Impressions Foot X-Ray 04/20/24 09:54 IMPRESSION: No acute osseous abnormality of the right foot. Highly suggestive cellulitis involving the plantar aspect anteriorly. 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
== END 2024-04-20 12:20 | disposition short-term general hospital (02) ==
PROVIDERS: Emergency Provider Emergency Medicine; PCP Family Medicine
DX: I75.021 Atheroembolism of right lower extremity (principal); E11.9 Type 2 diabetes mellitus without complications; I10 Essential (primary) hypertension; E03.9 Hypothyroidism, unspecified; Z79.01 Long term (current) use of anticoagulants
CPT/HCPCS: 36415; 73630; 80053; 85025; 85610; 85730; 96365; 96366; 99285; J1644